=== PATIENT | male | born 1995 | race American Indian/Alaskan Native ===

== ENCOUNTER 2017-12-23 16:59 | Emergency (ER) | payer BC ==
[2017-12-23 17:08] VITALS: BP 146/88
--- NOTE | 2017-12-23 18:13 | EDM.PDOC ---
ED HPI GENERAL MEDICAL PROBLEM - General Chief Complaint: Cardiovascular Problem Stated Complaint: CHEST PAINS Time Seen by Provider: 12/23/17 17:13 Source of Information: Reports: Patient History Limitations: Reports: No Limitations - History of Present Illness INITIAL COMMENTS - FREE TEXT/NARRATIVE: The patient presents with chest tightness. The pain is on the right upper chest. He has some shortness of breath at times. This has been going on for a few months. The tightness does come and go. He has no fever, chills, cough, abdominal pain, nausea or vomiting. He does smoke. He has diabetes and HTN. His mother of an NE at 41 years old. He also needs refills on his metformin and lorsartin. Onset: Gradual Duration: Week(s): (8) Location: Reports: Chest Quality: Reports: Other (Tightness right upper chest) Severity: Mild Improves with: Reports: None Worsens with: Reports: None Associated Symptoms: Reports: Chest Pain, Shortness of Breath. Denies: Cough, Fever/Chills, Headaches, Nausea/Vomiting Chest Pain Score (Numeric/FACES): 1 - Related Data Allergies Allergy/AdvReac Type Severity Reaction Status Date / Time amoxicillin Allergy Airway Verified 12/23/17 17:17 Tightness Penicillins Allergy Airway Verified 12/23/17 17:17 Tightness shellfish derived Allergy Airway Verified 12/23/17 17:17 Tightness Home Meds: Home Meds Losartan [Cozaar] 25 mg PO DAILY 12/23/17 [History] Losartan [Cozaar] 25 mg PO DAILY #30 tab 12/23/17 [Rx] Metformin. 1 dose PO DAILY 12/23/17 [History] metFORMIN [Glucophage XR] 500 mg PO BIDMEALS 60 Days #30 tab.er 12/23/17 [Rx] Past Medical History - Past Health History Medical/Surgical History: Denies Medical/Surgical History Cardiovascular History: Reports: Hypertension Social & Family History - Tobacco Use Smoking Status *Q: Current Every Day Smoker Years of Tobacco use: 3 Packs/Tins Daily: 1.5 - Caffeine Use Caffeine Use: Reports: Energy Drinks - Recreational Drug Use Recreational Drug Use: No ED ROS GENERAL - Review of Systems Review Of Systems: See Below Constitutional: Reports: No Symptoms HEENT: Reports: No Symptoms Respiratory: Reports: Shortness of Breath Cardiovascular: Reports: Chest Pain Endocrine: Reports: No Symptoms GI/Abdominal: Reports: No Symptoms : Reports: No Symptoms Musculoskeletal: Reports: No Symptoms ED EXAM, GENERAL - Physical Exam Exam: See Below Exam Limited By: No Limitations General Appearance: Alert, No Apparent Distress Ears: Normal External Exam Nose: Normal Inspection Head: Atraumatic, Normocephalic Neck: Normal Inspection Respiratory/Chest: No Respiratory Distress, Lungs Clear, Normal Breath Sounds Cardiovascular: Regular Rate, Rhythm, No Edema, No Murmur GI/Abdominal: Soft, Non-Tender, No Organomegaly, No Mass Back Exam: Normal Inspection Extremities: Normal Inspection Neurological: Alert, Oriented, No Motor/Sensory Deficits EKG INTERPRETATION EKG Date: 12/23/17 Time: 17:35 Rhythm: NSR Rate (Beats/Min): 83 [place]: Normal P-Wave: Present QRS: Wide (nonspecific interventricular conduction delay) ST-T: Normal QT: Normal EKG Interpretation Comments: Q waves in the interior leads. Course - Vital Signs Last Recorded V/S: Last Vital Signs Temp 98.3 F 12/23/17 17:06 Pulse 83 12/23/17 17:06 Resp 18 12/23/17 17:06 BP 146/88 H 12/23/17 17:06 Pulse Ox 95 12/23/17 17:06 - Orders/Labs/Meds Orders: Active Orders 24 hr Category Date Time Status Cardiac Monitoring [RC] . DIRECTED Care 12/23/17 17:28 Active EKG Documentation Completion [RC] STAT Care 12/23/17 17:28 Active Chest 2V [CR] Stat Exams 12/23/17 17:29 Taken Labs: Laboratory Tests 12/23/17 12/23/17 Range/Units 17:43 17:43 WBC 10.05 H (4.23-9.07) K/mm3 RBC 5.37 (4.63-6.08) M/mm3 Hgb 15.7 (13.7-17.5) gm/L Hct 45.1 (40.1-51.0) % MCV 84.0 (79.0-92.2) fl MCH 29.2 (25.7-32.2) pg MCHC 34.8 (32.2-35.5) g/dl RDW Std Deviation 37.4 (35.1-43.9) fL Plt Count 167 (163-337) K/mm3 MPV 12.0 (9.4-12.3) fl Neut % (Auto) 66.7 (34.0-67.9) % Lymph % (Auto) 26.5 (21.8-53.1) % [place] % (Auto) 5.5 (5.3-12.2) % Eos % (Auto) 1.1 (0.8-7.0) Baso % (Auto) 0.1 (0.1-1.2) % Neut # (Auto) 6.71 H (1.78-5.38) K/mm3 Lymph # (Auto) 2.66 (1.32-3.57) K/mm3 [place] # (Auto) 0.55 (0.30-0.82) K/mm3 Eos # (Auto) 0.11 (0.04-0.54) K/mm3 Baso # (Auto) 0.01 (0.01-0.08) K/mm3 Sodium 137 (136-145) mEq/L Potassium 3.8 (3.5-5.1) mEq/L Chloride 103 (98-107) mEq/L Carbon Dioxide 27 (21-32) mEq/L Anion Gap 10.8 (5-15) BUN 21 H (7-18) mg/dL Creatinine 1.3 (0.7-1.3) mg/dL Est Cr Clr Drug Dosing 101.87 mL/min Estimated GFR (MDRD) > 60 (>60) mL/min BUN/Creatinine Ratio 16.2 (14-18) Glucose 262 H (74-106) mg/dL Calcium 8.8 (8.5-10.1) mg/dL Total Bilirubin 0.6 (0.2-1.0) mg/dL AST 22 (15-37) U/L ALT 50 (16-63) U/L Alkaline Phosphatase 88 (46-116) U/L Troponin I < 0.017 (0.00-0.056) ng/mL Total Protein 7.0 (6.4-8.2) g/dl Albumin 3.5 (3.4-5.0) g/dl Globulin 3.5 gm/dL Albumin/Globulin Ratio 1.0 (1-2) - Re-Assessments/Exams Free Text/Narrative Re-Assessment/Exam: 12/23/17 18:13 His EKG shows nothing acute. His CXR looks good. His CBC looks good. His blood glucose is elevated at 262. His troponin is negative. Departure - Departure Time of Disposition: 18:15 Disposition: Home, Self-Care 01 Condition: Good Clinical Impression: Atypical chest pain, Hyperglycemia Prescriptions: Losartan [Cozaar] 25 mg PO DAILY #30 tab metFORMIN [Glucophage XR] 500 mg PO BIDMEALS 60 Days #30 tab.er Referrals: PCP,None [Primary Care Provider] - Additional Instructions: Take your medication as prescribed. Follow up with your doctor in a couple weeks. Please return if you are worse. - My Orders Last 24 Hours: My Active Orders 12/23/17 17:28 Cardiac Monitoring [RC] . DIRECTED EKG Documentation Completion [RC] STAT 12/23/17 17:29 Chest 2V [CR] Stat - Assessment/Plan Last 24 Hours: My Active Orders 12/23/17 17:28 Cardiac Monitoring [RC] . DIRECTED EKG Documentation Completion [RC] STAT 12/23/17 17:29 Chest 2V [CR] Stat
--- NOTE | 2017-12-26 08:35 | CR ---
Chest: Two views of the chest were obtained. Comparison: No prior chest x-ray. Heart size and mediastinum are normal. Lungs are clear. Bony structures are unremarkable. Impression: 1. Nothing acute is seen on two-view chest x-ray. Diagnostic code #1
== END 2017-12-23 18:28 | disposition home or self-care (01) ==
LOC: JD.ED 16:59
DX: E11.65 Type 2 diabetes mellitus with hyperglycemia (principal); R07.89 Other chest pain; I10 Essential (primary) hypertension; F17.210 Nicotine dependence, cigarettes, uncomplicated; Z88.1 Allergy status to other antibiotic agents; Z88.0 Allergy status to penicillin; Z91.013 Allergy to seafood; Z79.84 Long term (current) use of oral hypoglycemic drugs; Z79.899 Other long term (current) drug therapy
CPT/HCPCS: 36415; 71046; 71046-26; 80053; 84484; 85025; 93005; 93010; 99284; 99285-25

== ENCOUNTER 2018-04-16 23:26 | Emergency (ER) | payer BC ==
[2018-04-16 23:37] VITALS: BP 155/100
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
--- NOTE | 2018-04-17 07:12 | CR ---
Left wrist: Four views of the left wrist were obtained. Comparison: No prior wrist exam. Joint spaces are maintained. No fracture, dislocation or other bony abnormality is seen. Impression: 1. No abnormality is identified on left wrist exam. Diagnostic code #1
--- NOTE | 2018-04-17 07:20 | CR ---
Right hand: Four views of the right hand were obtained. Comparison: No previous study. Joint spaces are maintained. No fracture, dislocation or other bony abnormality is seen. Impression: 1. No abnormality is identified on right hand exam. Diagnostic code #1
== END 2018-04-17 00:27 | disposition home or self-care (01) ==
LOC: JD.ED 23:26
DX: S63.502A Unspecified sprain of left wrist, initial encounter (principal); S63.601A Unspecified sprain of right thumb, initial encounter; S00.81XA Abrasion of other part of head, initial encounter; S50.812A Abrasion of left forearm, initial encounter; S50.312A Abrasion of left elbow, initial encounter; S80.212A Abrasion, left knee, initial encounter; S00.212A Abrasion of left eyelid and periocular area, initial encounter; I10 Essential (primary) hypertension; Z79.84 Long term (current) use of oral hypoglycemic drugs; Z91.013 Allergy to seafood; Z88.0 Allergy status to penicillin; Z88.1 Allergy status to other antibiotic agents; V29.9XXA Motorcycle rider (driver) (passenger) injured in unspecified traffic accident, initial encounter
CPT/HCPCS: 73110-26-LT; 73110-LT; 73130-26-RT; 73130-RT; 99283; 99284

== ENCOUNTER 2018-09-18 14:29 | Emergency (ER) | payer BC ==
[2018-09-18 14:42] VITALS: BP 141/86
--- NOTE | 2018-09-18 16:35 | EDM.PDOC ---
ED HPI GENERAL MEDICAL PROBLEM - General Chief Complaint: Chest Pain Stated Complaint: CHEST PAIN Time Seen by Provider: 09/18/18 16:20 Source of Information: Reports: Patient, RN Notes Reviewed History Limitations: Reports: No Limitations - History of Present Illness INITIAL COMMENTS - FREE TEXT/NARRATIVE: Patient is a 23 year old male who presents to the ED for the evaluation of chest tightness. He states this has been present for around 1 week, and is only bothersome when he exerts himself. The patient has a history of high blood pressure and diabetes mellitus type 2. He states that he is actually only here for a refill on his medication for BP and blood sugars. He is not worried at all about the chest tightness, as this is not different from other times he has felt this. Left Chest Pain Score (Numeric/FACES): 2 - Related Data Allergies Allergy/AdvReac Type Severity Reaction Status Date / Time amoxicillin Allergy Airway Verified 04/16/18 23:33 Tightness Penicillins Allergy Airway Verified 04/16/18 23:33 Tightness shellfish derived Allergy Airway Verified 04/16/18 23:33 Tightness Home Meds: Home Meds Losartan [Cozaar] 25 mg PO DAILY #30 tab 12/23/17 [Rx] metFORMIN [Glucophage XR] 500 mg PO BIDMEALS 60 Days #30 tab.er 12/23/17 [Rx] Losartan [Cozaar] 25 mg PO DAILY #30 tab 09/18/18 [Rx] metFORMIN [Glucophage XR] 500 mg PO BIDMEALS #60 tab.er 09/18/18 [Rx] Past Medical History - Past Health History Medical/Surgical History: Denies Medical/Surgical History Cardiovascular History: Reports: High Cholesterol, Hypertension Respiratory History: Reports: Asthma Psychiatric History: Reports: Anxiety, Depression Endocrine/Metabolic History: Reports: Diabetes, Type II Social & Family History - Family History Cardiac: Reports: Hypertension, [place] - Tobacco Use Smoking Status *Q: Current Every Day Smoker Years of Tobacco use: 12 Packs/Tins Daily: 1 - Caffeine Use Caffeine Use: Reports: Energy Drinks, Tea - Recreational Drug Use Recreational Drug Use: Yes Drug Use in Last 12 Months: No Recreational Drug Type: Reports: Marijuana/Hashish ED ROS GENERAL - Review of Systems Review Of Systems: ROS reveals no pertinent complaints other than HPI. Constitutional: Denies: Fever, Chills Respiratory: Reports: No Symptoms Cardiovascular: Reports: Blood Pressure Problem. Denies: Chest Pain Endocrine: Reports: Other (Diabetes Mellitus) GI/Abdominal: Reports: No Symptoms : Reports: No Symptoms Musculoskeletal: Reports: No Symptoms Skin: Reports: No Symptoms Neurological: Reports: No Symptoms Psychiatric: Reports: No Symptoms Hematologic/Lymphatic: Reports: No Symptoms Immunologic: Reports: No Symptoms ED EXAM, GENERAL - Physical Exam Exam: See Below Exam Limited By: No Limitations General Appearance: Alert, WD/WN, No Apparent Distress Respiratory/Chest: No Respiratory Distress, Lungs Clear, Normal Breath Sounds, No Accessory Muscle Use, Chest Non-Tender Cardiovascular: Normal Peripheral Pulses, Regular Rate, Rhythm, No Edema, No Murmur GI/Abdominal: Normal Bowel Sounds, Soft, Non-Tender, No Distention, No Mass Extremities: Normal Inspection, Normal Capillary Refill Neurological: Alert, Oriented, Normal Cognition, Normal Reflexes, No Motor/ Sensory Deficits Psychiatric: Normal Affect, Normal Mood Skin Exam: Warm, Dry, Intact, Normal Color, No Rash EKG INTERPRETATION EKG Date: 09/18/18 Time: 14:38 Rhythm: NSR Rate (Beats/Min): 87 [place]: Normal P-Wave: Present QRS: Normal ST-T: Normal QT: Normal EKG Interpretation Comments: Reviewed with Dr. Rogers Course - Vital Signs Last Recorded V/S: Last Vital Signs Temp 97.2 F 09/18/18 14:38 Pulse 99 09/18/18 14:38 Resp 20 09/18/18 14:38 BP 141/86 H 09/18/18 14:38 Pulse Ox 96 09/18/18 14:38 - Orders/Labs/Meds Orders: Active Orders 24 hr Category Date Time Status EKG 12 Lead [EKG Documentation Completion] [RC] STAT Care 09/18/18 15:32 Active Labs: Laboratory Tests 09/18/18 09/18/18 09/18/18 Range/Units 15:40 15:50 15:50 WBC 8.55 (4.23-9.07) K/mm3 RBC 5.83 (4.63-6.08) M/mm3 Hgb 16.6 (13.7-17.5) gm/L Hct 49.2 (40.1-51.0) % MCV 84.4 (79.0-92.2) fl MCH 28.5 (25.7-32.2) pg MCHC 33.7 (32.2-35.5) g/dl RDW Std Deviation 39.1 (35.1-43.9) fL Plt Count 202 (163-337) K/mm3 MPV 11.2 (9.4-12.3) fl Neut % (Auto) 65.9 (34.0-67.9) % Lymph % (Auto) 26.5 (21.8-53.1) % [place] % (Auto) 6.5 (5.3-12.2) % Eos % (Auto) 0.8 (0.8-7.0) Baso % (Auto) 0.1 (0.1-1.2) % Neut # (Auto) 5.62 H (1.78-5.38) K/mm3 Lymph # (Auto) 2.27 (1.32-3.57) K/mm3 [place] # (Auto) 0.56 (0.30-0.82) K/mm3 Eos # (Auto) 0.07 (0.04-0.54) K/mm3 Baso # (Auto) 0.01 (0.01-0.08) K/mm3 PT 10.3 (9.5-12.1) SECONDS INR 0.94 Sodium (136-145) mEq/L Potassium (3.5-5.1) mEq/L Chloride (98-107) mEq/L Carbon Dioxide (21-32) mEq/L Anion Gap (5-15) BUN (7-18) mg/dL Creatinine (0.7-1.3) mg/dL Est Cr Clr Drug Dosing mL/min Estimated GFR (MDRD) (>60) mL/min BUN/Creatinine Ratio (14-18) Glucose (74-106) mg/dL Calcium (8.5-10.1) mg/dL Total Bilirubin (0.2-1.0) mg/dL AST (15-37) U/L ALT (16-63) U/L Alkaline Phosphatase (46-116) U/L Troponin I (0.00-0.056) ng/mL Total Protein (6.4-8.2) g/dl Albumin (3.4-5.0) g/dl Globulin gm/dL Albumin/Globulin Ratio (1-2) Urine Color Yellow (Yellow) Urine Appearance Clear (Clear) Urine pH 6.5 (5.0-8.0) Ur Specific Mineral 1.025 (1.005-1.030) Urine Protein Trace H (Negative) Urine Glucose (UA) 2+ H (Negative) Urine Ketones Negative (Negative) Urine Occult Blood Negative (Negative) Urine Nitrite Negative (Negative) Urine Bilirubin Negative (Negative) Urine Urobilinogen 0.2 (0.2-1.0) Ur Leukocyte Esterase Negative (Negative) Urine RBC 0-5 (0-5) /hpf Urine WBC 0-5 (0-5) /hpf Ur Epithelial Cells 0-5 (0-5) /hpf Urine Bacteria Occasional (FEW) /hpf Urine Mucus Not seen (FEW) /hpf 09/18/18 Range/Units 15:50 WBC (4.23-9.07) K/mm3 RBC (4.63-6.08) M/mm3 Hgb (13.7-17.5) gm/L Hct (40.1-51.0) % MCV (79.0-92.2) fl MCH (25.7-32.2) pg MCHC (32.2-35.5) g/dl RDW Std Deviation (35.1-43.9) fL Plt Count (163-337) K/mm3 MPV (9.4-12.3) fl Neut % (Auto) (34.0-67.9) % Lymph % (Auto) (21.8-53.1) % [place] % (Auto) (5.3-12.2) % Eos % (Auto) (0.8-7.0) Baso % (Auto) (0.1-1.2) % Neut # (Auto) (1.78-5.38) K/mm3 Lymph # (Auto) (1.32-3.57) K/mm3 [place] # (Auto) (0.30-0.82) K/mm3 Eos # (Auto) (0.04-0.54) K/mm3 Baso # (Auto) (0.01-0.08) K/mm3 PT (9.5-12.1) SECONDS INR Sodium 142 (136-145) mEq/L Potassium 3.9 (3.5-5.1) mEq/L Chloride 104 (98-107) mEq/L Carbon Dioxide 31 (21-32) mEq/L Anion Gap 10.9 (5-15) BUN 15 (7-18) mg/dL Creatinine 1.2 (0.7-1.3) mg/dL Est Cr Clr Drug Dosing 109.41 mL/min Estimated GFR (MDRD) > 60 (>60) mL/min BUN/Creatinine Ratio 12.5 L (14-18) Glucose 200 H (74-106) mg/dL Calcium 9.5 (8.5-10.1) mg/dL Total Bilirubin 0.5 (0.2-1.0) mg/dL AST 17 (15-37) U/L ALT 38 (16-63) U/L Alkaline Phosphatase 83 (46-116) U/L Troponin I < 0.017 (0.00-0.056) ng/mL Total Protein 7.5 (6.4-8.2) g/dl Albumin 3.6 (3.4-5.0) g/dl Globulin 3.9 gm/dL Albumin/Globulin Ratio 0.9 L (1-2) Urine Color (Yellow) Urine Appearance (Clear) Urine pH (5.0-8.0) Ur Specific Mineral (1.005-1.030) Urine Protein (Negative) Urine Glucose (UA) (Negative) Urine Ketones (Negative) Urine Occult Blood (Negative) Urine Nitrite (Negative) Urine Bilirubin (Negative) Urine Urobilinogen (0.2-1.0) Ur Leukocyte Esterase (Negative) Urine RBC (0-5) /hpf Urine WBC (0-5) /hpf Ur Epithelial Cells (0-5) /hpf Urine Bacteria (FEW) /hpf Urine Mucus (FEW) /hpf - Re-Assessments/Exams Free Text/Narrative Re-Assessment/Exam: 09/18/18 17:01 Pt presents to the ED for the evaluation of chest tightness. He did get worked up as a chest pain, all of the labs and EKG are unremarkable. He ultimately only wants a refill of his blood pressure/diabetic medications. I told him that it was not appropriate for him to keep getting his medications refilled by ED staff. It was recommended that he set up care with a primary care provider to do so. I will provide him with 1 month of these and provide him with the number of our clinic so that he may do so. The patient understands. Departure - Departure Time of Disposition: 17:04 Disposition: Home, Self-Care 01 Condition: Fair Clinical Impression: Chest tightness Instructions: Nonspecific Chest Pain, [id number] Referrals: PCP,None [Primary Care Provider] - Forms: ED Department Discharge Additional Instructions: You have been evaluated in the ED for chest tightness. Your workup is all within normal limits. You have been provided with 1 month of your chronic medications, these were sent to [facility] near [facility]. IT IS HIGHLY RECOMMENDED THAT YOU GET SET UP WITH A PRIMARY CARE PROVIDER FOR MANAGEMENT OF YOUR CHRONIC DISEASES. Please call [phone] and pick a family practice provider of your choice, recommend Micki Johansen PA-C. Please return to the ED if your symptoms change or worsen.
== END 2018-09-18 17:26 | disposition home or self-care (01) ==
LOC: JD.ED 14:29
DX: R07.89 Other chest pain (principal); E78.00 Pure hypercholesterolemia, unspecified; I10 Essential (primary) hypertension; J45.909 Unspecified asthma, uncomplicated; F17.210 Nicotine dependence, cigarettes, uncomplicated; Z88.1 Allergy status to other antibiotic agents; Z88.8 Allergy status to other drugs, medicaments and biological substances; Z88.0 Allergy status to penicillin; Z91.013 Allergy to seafood
CPT/HCPCS: 36415; 80053; 81001; 84484; 85025; 85610; 93005; 93010; 99284; 99285-25

== ENCOUNTER 2020-03-09 19:45 | Emergency (ER) | payer SELFPAY ==
[2020-03-09 19:55] VITALS: BP 142/88; PULSE 99
[2020-03-09] MEDS ORDERED: Lidocaine 1% 10 ML MDV INJECT ONE (20:18)
--- NOTE | 2020-03-09 20:24 | EDM.PDOC ---
ED HPI GENERAL MEDICAL PROBLEM - General Chief Complaint: Skin Complaint Stated Complaint: CYST ON NECK Time Seen by Provider: 03/09/20 19:52 Source of Information: Reports: Patient, RN Notes Reviewed History Limitations: Reports: No Limitations - History of Present Illness INITIAL COMMENTS - FREE TEXT/NARRATIVE: Patient is a 24-year-old male who presents to the ED for evaluation of an abscess on the back of his neck. Patient states that he developed a pimple or ingrown hair, roughly 1 week ago, and he states he had his sister pull out a hair, but notes that the area has grown, became more tender, and does he was at times. He states it is painful. He is not taking much for pain meds at home. This is roughly the size of a $0.50 piece in circumference. He further denies any fever/chills, cough/shortness of breath, nausea/vomiting/diarrhea. Patient notes he has had something like this 1 time before when he was a teenager. Occipital Head Pain Score (Numeric/FACES): 0 - Related Data Allergies Allergy/AdvReac Type Severity Reaction Status Date / Time amoxicillin Allergy Airway Verified 02/22/19 01:29 Tightness Penicillins Allergy Airway Verified 02/22/19 01:29 Tightness shellfish derived Allergy Airway Verified 02/22/19 01:29 Tightness Home Meds: Home Meds Losartan [Cozaar] 25 mg PO DAILY #30 tab 09/18/18 [Rx] metFORMIN [Glucophage XR] 500 mg PO BIDMEALS #60 tab.er 09/18/18 [Rx] Doxycycline [Vibramycin] 100 mg PO BID #14 tab 03/09/20 [Rx] Past Medical History Cardiovascular History: Reports: High Cholesterol, Hypertension Respiratory History: Reports: Asthma Psychiatric History: Reports: Anxiety, Depression Endocrine/Metabolic History: Reports: Diabetes, Type II, Obesity/BMI 30+ Social & Family History - Family History Family Medical History: Noncontributory Cardiac: Reports: Hypertension, NC - Tobacco Use Smoking Status *Q: Current Every Day Smoker Years of Tobacco use: 15 Packs/Tins Daily: 1.5 - Caffeine Use Caffeine Use: Reports: Coffee - Living Situation & Occupation Living situation: Reports: Single, with Family (Father) 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 ED EXAM, SKIN/RASH Exam: See Below Exam Limited By: No Limitations General Appearance: Alert, WD/WN, No Apparent Distress Head: Atraumatic, Normocephalic Neck: Other (Lesion is located on the posterior base of skull at the occiput of the skull) Respiratory/Chest: No Respiratory Distress, Lungs Clear, Normal Breath Sounds, No Accessory Muscle Use, Chest Non-Tender Cardiovascular: Normal Peripheral Pulses, Regular Rate, Rhythm, No Murmur Extremities: Normal Inspection, Normal Capillary Refill Neurological: Alert, Oriented, Normal Cognition, No Motor/Sensory Deficits Psychiatric: Normal Affect, Normal Mood Skin: Warm, Dry, Intact, Normal Color, No Rash, Other (Lesion is located on the posterior base of skull at the occiput of the skull) ED SKIN PROCEDURES - I&D Site: Posterior base of skull Skin Prep: Chlorhexidine (Hibiciens) Local Anesthesia: Lidocaine: 1% Plain Local Anesthetic Volume: 4cc, 5cc Area Incised With: 11 Blade Drainage: Purulent, Bloody, Moderate Amount Probed to Break Up Loculations: Yes Sterile Dressing: Adhesive Dressing Complications: No Course - Vital Signs Last Recorded V/S: Last Vital Signs Temp 97.6 F 03/09/20 19:51 Pulse 99 03/09/20 19:51 Resp 16 03/09/20 19:51 BP 142/88 H 03/09/20 19:51 Pulse Ox 97 03/09/20 19:51 - Orders/Labs/Meds Orders: Active Orders 24 hr Category Date Time Status Doxycycline [Vibramycin] Med 03/09/20 21:07 Once 100 mg PO ONETIME ONE Medication Orders Doxycycline Hyclate (Vibramycin) 100 mg PO ONETIME ONE Stop: 03/09/20 21:08 Meds: Medications Generic Name Dose Route Start Last Admin Trade Name Freq PRN Reason Stop Dose Admin Doxycycline Hyclate 100 mg 03/09/20 21:07 Vibramycin PO 03/09/20 21:08 ONETIME ONE Discontinued Medications Generic Name Dose Route Start Last Admin Trade Name Freq PRN Reason Stop Dose Admin Lidocaine HCl 10 ml 03/09/20 20:18 03/09/20 21:01 Xylocaine 1% INJECT 03/09/20 20:19 10 ml ONETIME ONE Administration Departure - Departure Time of Disposition: 20:24 Disposition: Home, Self-Care 01 Condition: Good Clinical Impression: Abscess of head - Discharge Information *PRESCRIPTION DRUG MONITORING PROGRAM REVIEWED*: No *COPY OF PRESCRIPTION DRUG MONITORING REPORT IN PATIENT JETT: No Prescriptions: Doxycycline [Vibramycin] 100 mg PO BID #14 tab Instructions: Skin Abscess, [id number] Forms: ED Department Discharge Additional Instructions: You were evaluated in the ER tonight regarding the abscess on the back of your head. This was incised and drained, and packed with gauze to help promote healing from the inside out. Please try to keep the area clean and dry, and pull the packing out in 24 hours. Please monitor the area for any redness/swelling, or any signs of infection. You were given a prescription of antibiotics called doxycycline, please take 1 tab 2 times a day until gone. This was electronically prescribed to the [facility] by [facility], you will need to go there tomorrow during normal business hours to obtain this and take as directed. You may use 500 mg Tylenol or 600 mg ibuprofen every 6 hours as needed for further pain relief. Do not exceed 4000 mg Tylenol or 3 200 mg ibuprofen in a 24-hour time span. You may use heat pack/cold packs to the area for pain relief as tolerated. Please return to the ER at any time if your symptoms should change or worsen. Sepsis Event Note (ED) - Evaluation Sepsis Screening Result: No Definite Risk - Focused Exam Vital Signs: Vital Signs Temp Pulse Resp BP Pulse Ox 03/09/20 19:51 97.6 F 99 16 142/88 H 97 - My Orders Last 24 Hours: My Active Orders 03/09/20 21:07 Doxycycline [Vibramycin] 100 mg PO ONETIME ONE - Assessment/Plan Last 24 Hours: My Active Orders 03/09/20 21:07 Doxycycline [Vibramycin] 100 mg PO ONETIME ONE
[2020-03-09] MEDS ORDERED: Doxycycline 100 MG Cap PO ONE (21:07)
== END 2020-03-09 21:14 | disposition home or self-care (01) ==
LOC: JD.ED 19:45
DX: L02.811 Cutaneous abscess of head [any part, except face] (principal); I10 Essential (primary) hypertension; E11.9 Type 2 diabetes mellitus without complications; E66.9 Obesity, unspecified; F17.210 Nicotine dependence, cigarettes, uncomplicated; Z79.84 Long term (current) use of oral hypoglycemic drugs; Z88.1 Allergy status to other antibiotic agents; Z88.0 Allergy status to penicillin; Z91.013 Allergy to seafood; Z79.899 Other long term (current) drug therapy
CPT/HCPCS: 10060; 99282; A9270; J2001; 99283